=== PATIENT | female | born 1995 | race Caucasian/White ===

== ENCOUNTER 2017-08-14 18:10 | Emergency (ER) | payer OTHER ==
[2017-08-14 19:00] VITALS: BP 121/85
--- NOTE | 2017-08-14 19:50 | ED ---
Throat Pain/Nasal Congestion - HPI Summary HPI Summary: 22 yr old female with bump back left neck and now also right posterior neck. Not painful. Present not more than a couple days, and the one on the right just today. No sore throat, weight change, fever, chills. She does not feel sick. She does not have pain anywhere. - History of Current Complaint Chief Complaint: [place] Time Seen by Provider: 08/14/17 19:26 - Allergies/Home Medications Allergies/Adverse Reactions: Allergies Allergy/AdvReac Type Severity Reaction Status Date / Time No Known Allergies Allergy Verified 08/14/17 18:52 Home Medications: Home Medications Allergy Med 1 tab QPM 08/14/17 [History Confirmed 08/14/17] Citalopram TAB* [Celexa TAB*] 10 mg DAILY 08/14/17 [History Confirmed 08/14/17] Norethindrone AC-Eth Estradiol [Loestrin 21 1-20 Tablet] 1 tab QPM 08/14/17 [ History Confirmed 08/14/17] PMH/Surg Hx/FS Hx/Imm Hx Endocrine/Hematology History: Denies: Hx Diabetes Respiratory History: Denies: Hx Asthma Psychiatric History: Reports: Hx Anxiety - Surgical History Surgery Procedure, Year, and Place: wisdom teeth Infectious Disease History: No Infectious Disease History: Denies: Traveled Outside the [place] in Last 30 Days - Family History Known Family History: Positive: Respiratory Disease - mother has asthma, Other - mother and grandmother with hypothyroid - Social History Alcohol Use: Weekly Alcohol Amount: 1 glass of wine every other day Substance Use Type: Reports: None Smoking Status (MU): Never Smoked Tobacco Review of Systems Constitutional: Negative Positive: Other - lymph nodes in neck All Other Systems Reviewed And Are Negative: Yes Physical Exam Triage Information Reviewed: Yes Vital Signs On Initial Exam: Initial Vitals Temp Pulse Resp BP Pulse Ox 98.5 F 77 16 121/85 100 08/14/17 18:55 08/14/17 18:55 08/14/17 18:55 08/14/17 18:55 08/14/17 18:55 Vital Signs Reviewed: Yes Appearance: Positive: Well-Appearing, No Pain Distress, Well-Nourished Skin: Positive: Warm, Skin Color Reflects Adequate Perfusion Head/Face: Positive: Normal Head/Face Inspection Eyes: Positive: EOMI, LINK ENT: Positive: Pharynx normal, TMs normal, Other - Thyroid not palpable. Neck: Positive: Supple, Enlarged Nodes @ - one on left and one on right in posterior cervical chain. They are not real big, not tender and not fixed or hard. Respiratory/Lung Sounds: Positive: Clear to Auscultation, Breath Sounds Present , Other - No axillary or supraclavicular or inguinal lymphadenopathy. Cardiovascular: Positive: RRR. Negative: Murmur Abdomen Description: Positive: Nontender Musculoskeletal: Positive: Strength/ROM Intact Neurological: Positive: Sensory/Motor Intact, Alert, Oriented to Person Place, Time, CN Intact II-III Psychiatric: Positive: Normal - Kt Coma Scale Best Eye Response: 4 - Spontaneous Best Motor Response: 6 - Obeys Commands Best Verbal Response: 5 - Oriented Coma Scale Total: 15 Diagnostics - Vital Signs Vital Signs Temp Pulse Resp BP Pulse Ox 08/14/17 18:55 98.5 F 77 16 121/85 100 - Laboratory Lab Statement: Any lab studies that have been ordered have been reviewed, and results considered in the medical decision making process. EENT Course/Dx - Course Course Of Treatment: 22 yr old well appearing female with two posterior cervical nodes that do not feel all that enlarged. She is following up with her PMD on Friday next week. - Diagnoses Provider Diagnoses: Posterior cervical lymphadenopathy Discharge - Sign-Out/Discharge Documenting (check all that apply): Discharge/Admit/Transfer - Discharge Plan Condition: Good Disposition: HOME Patient Education Materials: Lymphadenopathy (ED) Referrals: Maurice Gabriel MD [Primary Care Provider] - 4 Days Additional Instructions: Go to ER for fever, feeling ill or sick, or pain in neck. - Billing Disposition and Condition Condition: GOOD Disposition: Home
== END 2017-08-14 19:58 | disposition home or self-care (01) ==
LOC: UCCORT 18:10
DX: R59.1 Generalized enlarged lymph nodes (principal)
CPT/HCPCS: 99211; G0463